=== PATIENT | male | born 1985 | race Two or more races ===

== ENCOUNTER 2022-12-29 09:54 | Emergency (ER) | payer OTHER ==
[~2022-12-29] VITALS: Ht 177.8 cm; Wt 88.0 kg
== END 2022-12-29 14:18 | disposition home or self-care (01) ==
LOC: ER 09:54
DX: M54.50 Low back pain, unspecified (principal); M62.830 Muscle spasm of back

== ENCOUNTER 2024-10-16 21:01 | Emergency (ER) | payer OTHER ==
[~2024-10-16] VITALS: Ht 172.7 cm; Wt 81.6 kg
[2024-10-16] MEDS ORDERED: LIDOCAINE HCL 1% 10ML VIAL ONE ×2 (21:43→23:12)
[2024-10-16] MEDS ORDERED: LIDOCAINE HCL 1% 10ML VIAL PERCUT ONE (21:45)
[2024-10-16] MEDS ORDERED: CEFTRIAXONE SODIUM 1,000 MG VIAL IM ONE (21:45)
[2024-10-16] MEDS ORDERED: DUI500 PO (22:47)
[2024-10-16] MEDS ORDERED: CEFTRIAXONE SODIUM 1,000 MG VIAL ONE (23:12)
== END 2024-10-16 23:52 ==
LOC: ER 21:02
DX: S61.011A Laceration without foreign body of right thumb without damage to nail, initial encounter (principal); W26.0XXA Contact with knife, initial encounter; Y93.89 Activity, other specified; Y92.89 Other specified places as the place of occurrence of the external cause; Y99.8 Other external cause status